=== PATIENT | female | born 1995 | race Caucasian/White ===

== ENCOUNTER 2018-07-16 14:57 | Emergency (ER) | payer OTHER ==
[~2018-07-16] VITALS: Ht 154.9 cm; Wt 72.0 kg
[2018-07-16] MEDS ORDERED: LATU40TA PO (15:07)
[2018-07-16 16:14] LABS: BASO % 0.2 % (0.0-1.0); EOS # 0.1 10^3/uL (0.0-0.50); EOS % 1.2 % (0.0-3.0); HEMATOCRIT 39.8 % (36.0-47.0); HEMOGLOBIN 12.9 g/dl (12.0-15.5); LYMPH # 1.3 10^3/uL (1.5-6.5); LYMPH % 19.7 % (24.0-44.0); MEAN CORPUSCULAR HGB CONC 32.4 g/dl (32.0-36.5); MEAN CORPUSCULAR VOLUME 86.5 fl (80.0-96.0); MONO # 0.5 10^3/uL (0.0-0.8); NEUTROPHILS # 4.6 10^3/uL (1.8-7.7); NEUTROPHILS % 70.1 % (36.0-66.0); PLATELET COUNT, AUTOMATED 260 10^3/uL (150-450); WHITE BLOOD COUNT 6.5 10^3/uL (4.0-10.0)
[2018-07-16 16:35] LABS: ALBUMIN 3.5 GM/DL (3.2-5.2); ALT/SGPT 18 U/L (12-78); BILIRUBIN,DIRECT < 0.1 MG/DL (0.0-0.2); BILIRUBIN,TOTAL 0.3 MG/DL (0.2-1.0); BLOOD UREA NITROGEN 14 MG/DL (7-18); CALCIUM LEVEL 8.4 MG/DL (8.5-10.1); CARBON DIOXIDE LEVEL 28 MEQ/L (21-32); CHLORIDE LEVEL 105 MEQ/L (98-107); CREATININE FOR GFR 0.79 MG/DL (0.55-1.30); GLOMERULAR FILTRATION RATE > 60.0 (>60); GLUCOSE, FASTING 97 MG/DL (70-100); LIPASE 98 U/L (73-393); POTASSIUM SERUM 3.8 MEQ/L (3.5-5.1); SODIUM LEVEL 138 MEQ/L (136-145); TOTAL PROTEIN 7.1 GM/DL (6.4-8.2)
[2018-07-16 16:41] LABS: HCG, SERUM QUALITATIVE NEGATIVE (NEGATIVE)
[2018-07-16] MEDS ORDERED: NS 1,000 ML IV ONE (17:00)
[2018-07-16] MEDS ORDERED: ONDANSETRON 4MG/2ML VIAL (J2405) IV ONE (17:00)
[2018-07-16] MEDS ORDERED: KETOROLAC 30 MG/ML VIAL (J1885) IV ONE (17:00)
[2018-07-16] MEDS: GASTROGRAFIN SOLUTION 30ML PO SCH ×2 (17:45→18:15)
[2018-07-16] MEDS ORDERED: ISOVUE-370 76% 125ML VIAL (Q9967 PER ML) As Ordered ONE (19:18)
--- NOTE | 2018-07-16 19:30 | REP ---
Clinical: Abdominal pain. Technique: Axial contrast enhanced images from the lung bases to the pubic symphysis using oral (per protocol) and 100 ml Isovue 370 intravenous contrast material with coronal and sagittal re-formations. Findings: Lung bases are clear. Visualized heart and pericardium normal. Liver, spleen, pancreas, gallbladder, bilateral adrenal glands and kidneys are normal. The enteric system is without obstruction or acute inflammatory process. Normal terminal ileum and appendix identified in the right lower quadrant. Moderate fecal stasis suggested. Pelvis demonstrates normal bladder and age-appropriate uterus/adnexa. No pelvic fluid or ascites. No free air. No adenopathy. Abdominal aorta and vasculature without aneurysm or dissection. Musculoskeletal structures are intact. Impression: No acute abdominopelvic pathology appreciated. Moderate fecal stasis cannot be excluded. Electronically Signed by Percy Carey MD 07/16/2018 07:22 P
[2018-07-16 19:33] VITALS: BP 96/54
[2018-07-16] MEDS ORDERED: MIRA3350 PO (19:37)
== END 2018-07-16 19:59 | disposition home or self-care (01) ==
LOC: M ED 14:57
DX: K59.00 Constipation, unspecified (principal); Z86.19 Personal history of other infectious and parasitic diseases; Z77.098 Contact with and (suspected) exposure to other hazardous, chiefly nonmedicinal, chemicals; Z79.899 Other long term (current) drug therapy
CPT/HCPCS: 74177; 80048; 80076; 81001; 83690; 84703; 85025; 96361; 96374; 96375; 99284; J1885; J2405; Q9963; Q9967

== ENCOUNTER 2018-09-20 18:16 | Emergency (ER) | payer OTHER ==
[~2018-09-20] VITALS: Ht 154.9 cm; Wt 69.2 kg
[~2018-09-20 18:16] MED LIST: LATU40TA PO; MIRA3350 PO
[2018-09-20 19:23] LABS: BASO % 0.4 % (0.0-1.0); EOS # 0.1 10^3/uL (0.0-0.50); EOS % 0.6 % (0.0-3.0); HEMATOCRIT 38.3 % (36.0-47.0); HEMOGLOBIN 12.8 g/dl (12.0-15.5); LYMPH # 2.4 10^3/uL (1.5-6.5); LYMPH % 29.6 % (24.0-44.0); MEAN CORPUSCULAR HEMOGLOBIN 29.7 pg (27.0-33.0); MEAN CORPUSCULAR HGB CONC 33.4 g/dl (32.0-36.5); MEAN CORPUSCULAR VOLUME 88.9 fl (80.0-96.0); MONO # 0.7 10^3/uL (0.0-0.8); MONO % 8.9 % (0.0-5.0); NEUTROPHILS # 4.8 10^3/uL (1.8-7.7); NEUTROPHILS % 59.7 % (36.0-66.0); PLATELET COUNT, AUTOMATED 302 10^3/uL (150-450); RED BLOOD COUNT 4.31 10^6/uL (4.00-5.40)
--- NOTE | 2018-09-20 20:15 | REP ---
Clinical: Dating and viability. Technique: Transabdominal and transvaginal first trimester obstetrical channel with color Doppler evaluation. Findings: Single live early intrauterine is appreciated. Gestational sac with yolk sac and pole identified. Barrett-rump length of 7 mm corresponds to 6 weeks 4 days gestational age with estimated date of delivery 05/12/2019 . heart rate equals 114 beats per minute. No gross abnormalities are identified. Maternal ovaries are normal and a right corpus luteal cyst is appreciated. Impression: Single live early intrauterine at 6 weeks 4 days gestational age. Complete anatomical assessment should be performed and 19-20 weeks. Electronically Signed by Percy Carey MD 09/20/2018 08:08 P
[2018-09-20 20:34] VITALS: BP 108/60
[2018-09-20 21:14] LABS: CHLAMYDIA DNA AMPLIFICATION NEGATIVE (NEGATIVE); GC DNA AMPLIFICATION NEGATIVE (NEGATIVE)
== END 2018-09-20 20:41 | disposition home or self-care (01) ==
LOC: M ED 18:16
DX: O20.9 Hemorrhage in early pregnancy, unspecified (principal); Z87.891 Personal history of nicotine dependence; Z3A.01 Less than 8 weeks gestation of pregnancy

== ENCOUNTER 2018-10-06 00:36 | Emergency (ER) | payer OTHER ==
[~2018-10-06] VITALS: Ht 154.9 cm; Wt 68.2 kg
[2018-10-06 01:13] LABS: BASO # 0.1 10^3/uL (0.0-0.2); BASO % 0.5 % (0.0-1.0); EOS # 0.1 10^3/uL (0.0-0.50); EOS % 0.9 % (0.0-3.0); HEMATOCRIT 36.9 % (36.0-47.0); HEMOGLOBIN 12.4 g/dl (12.0-15.5); LYMPH # 3.2 10^3/uL (1.5-6.5); LYMPH % 29.9 % (24.0-44.0); MEAN CORPUSCULAR HEMOGLOBIN 29.7 pg (27.0-33.0); MEAN CORPUSCULAR HGB CONC 33.6 g/dl (32.0-36.5); MEAN CORPUSCULAR VOLUME 88.5 fl (80.0-96.0); MONO # 0.9 10^3/uL (0.0-0.8); MONO % 8.9 % (0.0-5.0); NEUTROPHILS # 6.2 10^3/uL (1.8-7.7); PLATELET COUNT, AUTOMATED 320 10^3/uL (150-450); RED BLOOD COUNT 4.17 10^6/uL (4.00-5.40); WHITE BLOOD COUNT 10.6 10^3/uL (4.0-10.0)
[2018-10-06 01:53] LABS: BLOOD UREA NITROGEN 9 MG/DL (7-18); CALCIUM LEVEL 8.6 MG/DL (8.5-10.1); CARBON DIOXIDE LEVEL 26 MEQ/L (21-32); CHLORIDE LEVEL 103 MEQ/L (98-107); CREATININE FOR GFR 0.65 MG/DL (0.55-1.30); GLOMERULAR FILTRATION RATE > 60.0 (>60); GLUCOSE, FASTING 84 MG/DL (70-100); HCG, SERUM QUANTITATIVE 142207 MIU/ML; POTASSIUM SERUM 3.8 MEQ/L (3.5-5.1); SODIUM LEVEL 136 MEQ/L (136-145)
--- NOTE | 2018-10-06 02:54 | REPVR ---
EXAM: US First Trimester, Transabdominal and US Duplex Artery and Vein, Ovaries, Complete EXAM DATE/TIME: 10/06/2018 1:17 AM CLINICAL HISTORY: 23 years old, female; Signs and symptoms; Lmp or gestational age (in weeks): 8w 6d; Other: Vaginal bleeding; TECHNIQUE: Imaging protocol: Real-time transabdominal obstetrical ultrasound of the maternal pelvis and a first trimester , less than 14 weeks 0 days, with image documentation. Real-time duplex ultrasound scan of the arterial and venous flow of the ovaries with B-mode, color Doppler flow and spectral waveform analysis, complete duplex. COMPARISON: No relevant prior studies available. FINDINGS: GESTATION: Gestation: Single viable intrauterine gestation. Yolk sac is present. Heart rate: heart rate is 175 beats per minute. Placenta: Unremarkable. No subchorionic bleed. Amniotic fluid: Amniotic and chorionic fluid are normal for gestational age. BIOMETRY: Estimated gestational age: Sonographically estimated gestational age is 8 weeks 6 days. Embarrass-Rump length: Embarrass-rump length pole is 2.2 cm. Estimated due date: Estimated date of delivery is 05/12/2019. MATERNAL: Uterus: Unremarkable. Cervix: Unremarkable. Right adnexa: Right ovary measures 3.6 x 2 x 2.6 cm. There is a 1.5 cm right ovarian corpus luteal cyst. Normal waveform. Left adnexa: Left ovary is obscured by bowel gas. Intraperitoneal: No intraperitoneal free fluid. IMPRESSION: Single viable intrauterine gestation 8 weeks 6 days of age. No subchorionic hemorrhage. No evidence of right ovarian torsion. Left ovary is obscured by bowel gas. Electronically signed by: Denilson Torres On 10/06/2018 02:54:20 AM
[2018-10-06 03:41] VITALS: BP 125/65
== END 2018-10-06 03:44 | disposition home or self-care (01) ==
LOC: M ED 00:36
DX: O20.0 Threatened abortion (principal); Z87.891 Personal history of nicotine dependence; Z3A.08 8 weeks gestation of pregnancy